=== PATIENT | male | born 1935 | race Caucasian/White ===

== ENCOUNTER → 2017-10-17 | Outpatient (CLI) | payer OTHER ==
[~2017-10-17] MED LIST: CLIN150 PO; LORTA5 PO; SYMB80AE INH
--- NOTE | 2017-10-21 09:39 | RSPPFT ---
DATE OF PROCEDURE: 10/17/17 COMMENTS: The forced vital capacity is normal. The FEV1 shows a small reduction with no significant improvement after bronchodilator. The FEF 25-75 is moderately reduced. The FEV1/FVC ratio is reduced. The residual volume is normal with a normal TLC and a normal RV/TLC. IMPRESSION: This is compatible with mild, large and small airways, irreversible obstructive lung disease. The diffusion capacity is normal.
== END ==
LOC: HRSP 09:54
PROVIDERS: ATTEND Family Medicine
DX: J45.909 Unspecified asthma, uncomplicated (principal)
CPT/HCPCS: 94060; 94726; 94729